=== PATIENT | male | born 1945 | race Caucasian/White ===

== ENCOUNTER → 2020-10-05 14:54 | Outpatient (CLI) | payer MEDICARE, SELFPAY ==
--- NOTE | 2020-10-05 | IMM_PTH ---
PATIENT: OMAR IRVING LOC: [facility] U#:[id number] AGE/SX: 79/M ROOM: RE10/05/[address]: Dr. Esequiel Nicholas MD : 1945 BED: DIS: SPEC #: [id number] RECD: 10/06/20 09:05 STATUS: DENNIS REQ #: [id number] MIKE: 10/05/20 00:[address]: Esequiel Nicholas DEPT: IMMUNOHISTOCHEMISTRY RECD BY: Dia Vaughan ENTERED: 10/06/20 09:06 SP TYPE: IMMUNO OTHR DR: Dr. Emily Gillis DO Tissues: Stomach, NOS Procedures: H Pylori (initial) PHYSICIAN & INSTITUTION [place] [id number] SPECIMEN INFORMATION: Tissue Source: Antral biopsy Clinical Info: Anemia Specimen Number: [id number] CPT code: 14920 METHODOLOGY: Deparaffinized sections of prefer/formalin-fixed tissue or PAP/DQ stained slides are incubated with monoclonal/polyclonal antibodies/oligonucleotide probes. Localization is made via biotin free immunoperoxidase method. Appropriate controls are performed and reacted as expected. Results on target cell population are indicated in the following table: RESULTS: ANTIBODY / CLONE RESULT H Pylori (polyclonal) negative These tests were developed and their performance characteristics determined by [facility]. They may not have been cleared or approved by the [place]. Food and Drug Administration. The FDA has determined that such clearance or approval is not necessary. INTERPRETATION: Antral biopsy: Negative for Helicobacter pylori organisms. AM:joey 10/09/2020
--- NOTE | 2020-10-05 09:50 | EGD_PTH ---
PATIENT: OMAR IRVING LOC: [facility] U#:[id number] AGE/SX: 79/M ROOM: RE10/05/[address]: Dr. Esequiel Nicholas MD : 1945 BED: DIS: SPEC #: [id number] RECD: 10/05/20 14:49 STATUS: DENNIS REMatthew #: [id number] MIKE: 10/05/20 09:[address]: Esequiel Nicholas DEPT: SURGICAL PATHOLOGY RECD BY: Roxanna Dyer ENTERED: 10/06/20 08:59 SP TYPE: EGD BIOPSY GREG DR: Dr. Emily Gillis, DO Tissues: Gastric mucous membrane Procedures: Surgery Specimen Level IV HEADER OPERATION: EGD / colonoscopy PRE-OP DIAGNOSIS: Anemia TISSUE SUBMITTED: Antral biopsy H/H MICROSCOPIC DIAGNOSIS Gastric antrum, biopsy: Mild chronic inflammation. AM:joey 10/09/2020 COMMENT The results of immunohistochemistry for Helicobacter pylori will be reported separately ([id number]). MICROSCOPIC DESCRIPTION Slides are reviewed. GROSS DESCRIPTION Received in fixative is one container labeled with the patient's name and designated antral biopsy. The specimen consists of one irregular fragment of light cloud soft tissue that measures 0.6 x 0.3 x 0.1 cm. The specimen is totally submitted in one cassette. / AM:joey 10/06/20 TC:3 [facility]: [id number]
== END ==
PROVIDERS: PCP Internal Medicine; Visit Provider Surgery
DX: D64.9 Anemia, unspecified (principal)
CPT/HCPCS: 88305; 88342

== ENCOUNTER → 2021-03-12 15:20 | Outpatient (CLI) | payer MEDICARE, SELFPAY ==
[2021-03-14 08:41] VITALS: BP 77/48; PULSE 93; RESP 16; TEMP 35.9; O2SAT 96; BMI 20.3
[2021-03-14] MEDS: Acetaminophen 325 MG Tablet 650 MG PO (08:45)
[2021-03-14 09:27] VITALS: BP 98/54; PULSE 76; RESP 16; TEMP 36.2; O2SAT 96
[2021-03-14] MEDS: 0.9% NaCl Peripheral Flush Adult/Peds IV (09:32)
[2021-03-14 10:35] VITALS: BP 87/49; PULSE 75; RESP 16; TEMP 35.7; O2SAT 96
== END ==
PROVIDERS: PCP Internal Medicine; Referring Provider Internal Medicine Hematology & Oncology; Visit Provider Internal Medicine Hematology & Oncology
DX: D64.9 Anemia, unspecified (principal)
CPT/HCPCS: 36430; 86850; 86900; 86901; 86920; 86922; J7040; P9016; A4216